=== PATIENT | female | born 1980 | race Hispanic/Latino ===

== ENCOUNTER 2017-12-16 09:29 | Emergency (ER) | payer SELFPAY ==
[2017-12-16] MEDS ORDERED: NA CHLORIDE 0.9% 1,000 ML ONE (10:38)
[2017-12-16 12:18] LABS: Absolute Lymphocytes (CBC) 2.2 K/uL (0.7-4.9); Absolute Monocytes 0.5 K/uL (0.1-1.3); Absolute Neutrophil 5.3 K/uL (1.8-8.0); Basophils % 0.7 % (0-1.3); Hematocrit 39.8 % (36.0-45.0); Lymphocytes % 27.1 % (15.3-44.8); MCV 88.9 fL (80-100); MPV 8.6 fL (7.6-11.3); Monocytes % 6.3 % (3.3-12.3); RBC Red Blood Cell Count 4.47 M/uL (3.86-4.86)
[2017-12-16 12:30] LABS: Protime INR 0.9
[2017-12-16 12:33] LABS: BUN Blood Urea Nitrogen 8 mg/dL (7-18); Bicarbonate 27 mmol/L (21-32); CKMB Creatine Kinase MB 2.6 ng/mL (0.3-3.6); Creatine Phosphokinase 310 U/L (26-192); Glucose Level 111 mg/dL (74-106); Magnesium 2.3 mg/dL (1.8-2.4); NT PRO-BNP 68 pg/mL (<125); Potassium 3.7 mmol/L (3.5-5.1); Sodium Level 140 mmol/L (136-145); Troponin I < 0.02 ng/mL (0.0-0.045)
[2017-12-16 13:58] LABS: Urine Blood TRACE (NEG); Urine Glucose NEGATIVE (NEG); Urine Protein NEGATIVE (NEG)
[2017-12-16 14:07] LABS: CKMB Creatine Kinase MB 2.4 ng/mL (0.3-3.6); Creatine Phosphokinase 284 U/L (26-192); Troponin (Emerg Dept Use Only) < 0.02 ng/mL (0.0-0.045)
--- NOTE | 2017-12-16 14:18 | ER ---
Nurse's Notes [facility] Name: Manisha Lee Age: 37 yrs Sex: Female : 1980 Arrival Date: 12/16/2017 Time: :31 Bed 20 Private MD: Diagnosis: Other chest pain;Syncope and collapse Presentation: 12/16 09:30 Acuity: MONA 3 dm5 Screenin:03 Abuse screen: Denies threats or abuse. Nutritional screening: No deficits noted. em Tuberculosis screening: No symptoms or risk factors identified. Fall Risk None identified. Assessment: 12:00 Reassessment: Patient appears in no apparent distress at this time. Patient and/or em family updated on plan of care and expected duration. Pain level reassessed. Patient is alert, oriented x 3, equal unlabored respirations, skin warm/dry/pink. Patient denies pain at this time. Patient states symptoms have improved. 12:00 Reassessment: see paper chart prior to 1200. em 13:04 Reassessment: Patient appears in no apparent distress at this time. Patient and/or em family updated on plan of care and expected duration. Pain level reassessed. Patient is alert, oriented x 3, equal unlabored respirations, skin warm/dry/pink. repeat EKG and cardiac labs Patient denies pain at this time. Patient states feeling better. Patient states symptoms have improved. 14:27 Reassessment: Patient appears in no apparent distress at this time. Patient and/or em family updated on plan of care and expected duration. Pain level reassessed. Patient is alert, oriented x 3, equal unlabored respirations, skin warm/dry/pink. Patient denies pain at this time. Patient states feeling better. Patient states symptoms have improved. Vital Signs: 12:00 BP 106 / 66; Pulse 70; Resp 18; Pulse Ox 99% on R/A; Pain 0/10; em 13:00 BP 116 / 67; Pulse 79; Resp 18; Pulse Ox 99% on R/A; em 13:57 BP 115 / 72; Pulse 82; Resp 16; Pulse Ox 100% on R/A; mh5 14:40 BP 110 / 65; Pulse 64; Resp 16; Pulse Ox 99% on R/A; Pain 0/10; em ED Course: :31 Patient arrived in ED. mr 11:35 Kwabena Wood, HALINA is Primary Nurse. em 11:36 Urine collected: clean catch specimen, clear, EKG done, by ED staff. [facility] 11:40 Arias Topete PA is PHCP. kdr 11:44 Dustin Garcia MD is Attending Physician. [facility] 12:00 Patient has correct armband on for positive identification. Placed in gown. Bed in low em position. Call light in reach. Adult w/ patient. 12:00 Arm band placed on. em 12:52 Chest Single View In Process Unspecified. EDMS 13:16 Repeat lab(s) drawn. by me, sent to lab. EKG done, by ED staff, reviewed by Arias 5 Yoselyn NIETO. 13:48 Triage completed. dm5 Administered Medications: No medications were administered Outcome: 14:17 Discharge ordered by . jmm 14:24 Discharge ordered by MD. m 14:42 Patient left the ED. em Signatures: Dispatcher [employer] EDMS Tisha Grace, RN RN dm5 Dustin Garcia MD MD [facility] Arias Topete PA PA [facility] Manisha Arcos mr Israel, Kwabena, MARINE PLUMBER MARINE PLUMBER [facility] Corrections: (The following items were deleted from the chart) 13:03 12:00 BP 106 / 66; Pulse 70bpm; Resp 18bpm; Pulse Ox 99% RA; em em
--- NOTE | 2017-12-16 14:19 | EDPHYS ---
Physician Documentation [facility] Name: Manisha Lee Age: 37 yrs Sex: Female : 1980 Arrival Date: 12/16/2017 Time: 09:31 Bed 20 Private MD: ED Physician Dustin Garcia HPI: 12/16 11:45 This 37 yrs old Female presents to ER via Unassigned with complaints of jmm Syncope. 11:45 The patient has experienced syncope, collapsed. Onset: The symptoms/episode jmm began/occurred acutely, yesterday. Duration: This was a single episode, that lasted 3 minute(s). Associated injury: The patient did not suffer any apparent associated injury. Associated signs and symptoms: Pertinent positives: chest pain. This is a 37 year old female with no chronic medical conditions that presents to the ED with weakness for approx 6 days. Patient states she had a syncopal episode yesterday while standing. Family states she collapsed and was unconscious for approx 3 minutes. Patient states that she awoke to substernal chest pain this morning at approx 0430, described as pressure and has been constant. Patient denies unilateral weakness. . ROS: 11:45 Constitutional: Negative for fever, chills, and weight loss. jmm 11:45 Abdomen/GI: Negative for abdominal pain, nausea, vomiting, diarrhea, and constipation, Back: Negative for injury and pain. 11:45 Skin: Negative for injury, rash, and discoloration. 11:45 Cardiovascular: Positive for chest pain. 11:45 Respiratory: Positive for shortness of breath. 11:45 MS/extremity: Positive for tingling. 11:45 Neuro: Positive for weakness. 11:45 All other systems are negative. Exam: 10:39 ECG was reviewed by the Attending Physician. jmm 11:45 Constitutional: This is a well developed, well nourished patient who is awake, alert, jmm and in no acute distress. Head/Face: atraumatic. 11:45 ENT: Moist Mucus Membranes Neck: Trachea midline, Supple Chest/axilla: Normal chest wall appearance and motion. 11:45 Cardiovascular: Rate: normal, Rhythm: regular, Pulses: no pulse deficits are appreciated. 11:45 Respiratory: the patient does not display signs of respiratory distress, Respirations: normal, Breath sounds: are clear throughout. 11:45 Abdomen/GI: Inspection: abdomen appears normal, Bowel sounds: normal, Palpation: abdomen is soft and non-tender, in all quadrants. 11:45 Skin: Appearance: Color: normal in color. 11:45 Neuro: Orientation: is normal, Mentation: is normal, Memory: is normal, Cerebellar function: normal finger to nose testing, Motor: is normal, Gait: is steady. 11:45 Psych: Behavior/mood is pleasant, cooperative. Vital Signs: 12:00 BP 106 / 66; Pulse 70; Resp 18; Pulse Ox 99% on R/A; Pain 0/10; em 13:00 BP 116 / 67; Pulse 79; Resp 18; Pulse Ox 99% on R/A; em 13:57 BP 115 / 72; Pulse 82; Resp 16; Pulse Ox 100% on R/A; mh5 14:40 BP 110 / 65; Pulse 64; Resp 16; Pulse Ox 99% on R/A; Pain 0/10; em MDM: 11:44 Patient medically screened. [facility] 14:16 Differential Diagnosis: vasovagal episode, syncope, acute MT. Data reviewed: vital [facility] signs, nurses notes. Counseling: I had a detailed discussion with the patient and/or guardian regarding: the historical points, exam findings, and any diagnostic results supporting the discharge/admit diagnosis, lab results, radiology results, the need for outpatient follow up, to return to the emergency department if symptoms worsen or persist or if there are any questions or concerns that arise at home. 14:18 ED course: Patient is alert and no ntoxic in appearance in the ED. Patient states her [facility] symptoms are relieved in the ED. Heart score = 0. I do not currently suspect ACS. Patient given strict return precautions and otherwise advised to follow up with PCP. Patient and family understood and agree with the plan of care. . 14:18 Data reviewed: lab test result(s), EKG, radiologic studies, plain films. [facility] 12/16 12:31 Order name: CBC with Automated Diff; Complete Time: 12:33 [facility] 12/16 12:32 Order name: Protime (+INR); Complete Time: 12:33 [facility] 12/16 12:32 Order name: PTT, Activated Partial Thromb; Complete Time: 12:33 [facility] 12/16 11:53 Order name: Urine Test (obtain specimen); Complete Time: 12:41 [facility] 12/16 11:53 Order name: XRAY Chest (1 view) [facility] 12/16 12:32 Order name: D-Dimer; Complete Time: 12:33 [facility] 12/16 12:34 Order name: Basic Metabolic Panel; Complete Time: 12:35 [facility] 12/16 12:34 Order name: Creatine Phosphokinase; Complete Time: 12:35 [facility] 12/16 12:34 Order name: CKMB Creatine Kinase MB; Complete Time: 12:35 [facility] 12/16 12:34 Order name: Troponin I; Complete Time: 12:35 [facility] 12/16 12:34 Order name: NT PRO-BNP; Complete Time: 12:35 [facility] 12/16 12:34 Order name: Magnesium; Complete Time: 12:35 [facility] 12/16 12:47 Order name: Ckmb; Complete Time: 14:15 12/16 12:47 Order name: Creatine Phosphokinase; Complete Time: 14:15 12/16 12:47 Order name: Troponin (emerg Dept Use Only); Complete Time: 14:15 12/16 12:51 Order name: Chest Single View [facility] 12/16 13:32 Order name: Urine Dipstick-Ancillary; Complete Time: 14:03 [facility] 12/16 13:32 Order name: Urine --Ancillary; Complete Time: 14:03 [facility] 12/16 11:53 Order name: Cardiac monitoring; Complete Time: 12:41 [facility] 12/16 11:53 Order name: EKG - Nurse/Tech; Complete Time: 12:41 [facility] 12/16 11:53 Order name: IV Saline Lock; Complete Time: 12:41 [facility] 12/16 11:53 Order name: Labs collected and sent; Complete Time: 12:41 [facility] 12/16 11:53 Order name: O2 Per Protocol; Complete Time: 12:41 [facility] 12/16 11:53 Order name: O2 Sat Monitoring; Complete Time: 12:41 [facility] 12/16 11:53 Order name: Urine Dipstick-Ancillary (obtain specimen); Complete Time: 12:40 jmm EC:39 Rate is 80 beats/min. Rhythm is regular. QRS [place] is Normal. IN interval is normal. QRS jmm interval is normal. QT interval is normal. No Q waves. T waves are Normal. No ST changes noted. Reviewed by me. Administered Medications: No medications were administered Disposition: 15:36 Co-signature as Attending Physician, Dustin Garcia MD I agree with the assessment and kdr plan of care. Disposition: 12/16/17 14:24 Discharged to Home. Impression: Other chest pain, Syncope and collapse. - Condition is Stable. - Discharge Instructions: Nonspecific Chest Pain, Syncope. - Medication Reconciliation Form, Thank You Letter, Antibiotic Education, Prescription Opioid Use form. - Follow up: Private Physician; When: 2 - 3 days; Reason: Recheck today's complaints, Continuance of care, Re-evaluation by your physician. - Notes: Please follow up with your primary care provder in 1 to 2 days for reevaluation. Please return to the ED if you develop increased pain or any other concerning symptoms. Signatures: Dispatcher [employer] Dustin Padilla MD MD kdr Mickail, Joel, PA PA jose eduardom Kwabena Wood, GOPHERMAN GOPHERMAN em Corrections: (The following items were deleted from the chart) 14:14 12:46 BASIC METABOLIC PANEL+C.LAB.BRZ ordered. EDND EDND 14:14 12:46 CBC+H.LAB.BRZ ordered. EDND EDMS 14:14 12:46 CKMB+C.LAB.BRZ ordered. EDND EDMS 14:14 12:46 CREATINE PHOSPHOKINASE+C.LAB.BRZ ordered. EDND EDMS 14:14 12:46 HEPATIC FUNCTION+C.LAB.BRZ ordered. EDND EDMS 14:14 12:46 MAGNESIUM+C.LAB.BRZ ordered. EDND EDND 14:14 12:46 PROBNP+C.LAB.BRZ ordered. EDND EDMS 14:14 12:46 PROTIME (+INR)+COAG.LAB.BRZ ordered. EDND EDMS 14:14 12:46 PTT, ACTIVATED+COAG.LAB.BRZ ordered. [facility] EDMS 14:14 12:46 TROPONIN (EMERG DEPT USE ONLY)+C.LAB.BRZ ordered. EDND EDMS 14:14 12:46 D-DIMER+COAG.LAB.BRZ ordered. [facility] EDND 14:21 14:17 12/16/2017 14:17 Discharged to Home. Impression: Syncope and collapse; Other jmm chest pain. Condition is Stable. Forms are Medication Reconciliation Form, Thank You Letter, Antibiotic Education, Prescription Opioid Use. Follow up: Private Physician; When: 2 - 3 days; Reason: Recheck today's complaints, Continuance of care, Re-evaluation by your physician. [facility] 14:42 14:24 12/16/2017 14:24 Discharged to Home. Impression: Other chest pain; Syncope and em collapse. Condition is Stable. Forms are Medication Reconciliation Form, Thank You Letter, Antibiotic Education, Prescription Opioid Use. Follow up: Private Physician; When: 2 - 3 days; Reason: Recheck today's complaints, Continuance of care, Re-evaluation by your physician. [facility]
--- NOTE | 2017-12-16 14:41 | RAD REPORT ---
EXAM DESCRIPTION: RAD - Chest Single View - 12/16/2017 11:08 am CLINICAL HISTORY: SYNCOPE<Reason For Exam>SYNCOPE Shortness of breath COMPARISON: No comparisons<Comparisons> TECHNIQUE: AP portable chest image was obtained 1105 hours . FINDINGS: Lungs are clear. Heart and vasculature are normal. No measurable pleural effusion and no p neumothorax. No gross bony abnormality seen. No acute aortic findings suspected. IMPRESSION: No acute cardiopulmonary process.
--- NOTE | 2017-12-18 07:58 | EKG ---
Test Date: 2017-12-16 Test Time: 13:06:03 Hydro Excavation Operator: BERNARD MEASUREMENT RESULTS: Intervals: Rate: 73 AK: 132 QRSD: 78 QT: 404 QTc: 445 [place]: P: 50 AK: 132 QRS: 83 T: 44 INTERPRETIVE STATEMENTS: Normal sinus rhythm Normal ECG Compared to ECG 12/16/2017 10:39:57 No significant changes Electronically Signed On 12-18-17 07:55:16 CDT by Anthony Mcmillan
--- NOTE | 2017-12-18 07:58 | EKG ---
Test Date: 2017-12-16 Test Time: 10:39:57 Ramp Manager: BERNARD MEASUREMENT RESULTS: Intervals: Rate: 80 MO: 130 QRSD: 78 QT: 374 QTc: 431 [place]: P: 50 MO: 130 QRS: 82 T: 49 INTERPRETIVE STATEMENTS: Normal sinus rhythm Normal ECG No previous ECG available for comparison Electronically Signed On 12-18-17 07:55:19 CDT by Anthony Mcmillan
== END 2017-12-16 14:42 | disposition home or self-care (01) ==
LOC: ER 09:29
DX: R55 Syncope and collapse (principal); R07.89 Other chest pain
CPT/HCPCS: 36415; 71045; 80048; 81003; 81025; 82550; 82553; 83735; 83880; 84484; 85025; 85379; 85610; 85730; 93005; 99284; J7030

== ENCOUNTER 2019-06-22 22:30 | Emergency (ER) | payer SELFPAY ==
[2019-06-22] MEDS ORDERED: NA CHLORIDE 0.9% 1,000 ML ONE (23:06)
[2019-06-22 23:25] LABS: Absolute Lymphocytes (CBC) 2.8 K/uL (0.7-4.9); Basophils % 0.5 % (0-1.3); Hematocrit 37.6 % (36.0-45.0); Lymphocytes % 19.5 % (15.3-44.8); MPV 8.5 fL (7.6-11.3); RBC Red Blood Cell Count 4.42 M/uL (3.86-4.86)
[2019-06-22 23:33] LABS: Protime INR 1.02
[2019-06-22 23:39] LABS: Potassium 3.5 mmol/L (3.5-5.1)
[2019-06-23] MEDS ORDERED: KETOROLAC 30 MG/ML INJ ONE (00:46)
--- NOTE | 2019-06-23 01:51 | ER ---
Nurse's Notes [facility] Name: Manisha Watkins Age: 38 yrs Sex: Female : 1980 Arrival Date: 06/22/2019 Time: 22:34 Bed 23 Private MD: Diagnosis: Abnormal uterine and vaginal bleeding, unspecified Presentation: 06/21 22:36 Chief complaint: Patient states: Vaginal bleeding heavy with clots for 2 days. Feels ll1 weak, dizzy. Denies . 1 pad about every 2 hours. Coronavirus screen: The patient has NOT traveled to a country currently being monitored by the [facility] within the last 14 days. Proceed with normal triage procedures. Ebola Screen: Patient denies travel to an Ebola-affected area in the 21 days before illness onset. Initial Sepsis Screen: Does the patient meet any 2 criteria? No. Patient's initial sepsis screen is negative. Does the patient have a suspected source of infection? No. Patient's initial sepsis screen is negative. Risk Assessment: Do you want to hurt yourself or someone else? Patient reports no desire to harm self or others. 22:36 Method Of Arrival: Ambulatory ll1 22:36 Acuity: MONA 3 ll1 Triage Assessment: 22:35 General: Appears in no apparent distress. Behavior is calm, cooperative. ls4 22:35 Neuro: No deficits noted. Cardiovascular: Denies chest pain. Respiratory: No deficits ls4 noted. GI: No deficits noted. : Reports vaginal bleeding that is. Derm: No deficits noted. Musculoskeletal: No deficits noted. 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 - Social history:: Patient/guardian denies using alcohol, street drugs, tobacco products. Screenin:42 Abuse screen: Denies threats or abuse. Denies injuries from another. Nutritional ls4 screening: No deficits noted. Tuberculosis screening: No symptoms or risk factors identified. Fall Risk None identified. Assessment: 23:20 Pain: Complains of pain in suprapubic area Pain currently is 6 out of 10 on a pain ls4 scale. Neuro: No deficits noted. Cardiovascular: Rhythm is regular. Respiratory: Breath sounds are clear bilaterally. GI: Abdomen is round non-distended, Bowel sounds present X 4 quads. : Urine is blood tinged, gillian blood, Reports vaginal bleeding that is bright red, with clots, heavy flow since YESTERDAY. Derm: No deficits noted. Musculoskeletal: No deficits noted. 06/22 00:22 Reassessment: Patient appears in no apparent distress at this time. Patient and/or ls4 family updated on plan of care and expected duration. Pain level reassessed. Patient is alert, oriented x 3, equal unlabored respirations, skin warm/dry/pink. 01:47 Reassessment: Patient and/or family updated on plan of care and expected duration. Pain fu level reassessed. Patient is alert, oriented x 3, equal unlabored respirations, skin warm/dry/pink. Vital Signs: 06/21 22:36 BP 144 / 81; Pulse 116; Resp 17; Temp 98.0; Pulse Ox 99% ; Weight 67.13 kg; Pain 5/10; ll1 08 00:20 BP 119 / 65; Pulse 89; Resp 18; Pulse Ox 99% on R/A; lp1 01:11 BP 112 / 71 Supine; Pulse 91 RA; fu 01:11 BP 114 / 73 Sitting; Pulse 92; fu 01:11 BP 118 / 71 Standing; Pulse 91; fu 01:45 BP 104 / 83; Pulse 75; Resp 20; Pulse Ox 99% ; fu 03:00 BP 109 / 70; Pulse 75; Resp 18; Pulse Ox 100% on R/A; Pain 0/10; fu ED Course: 06/21 22:30 Arm band placed on. ls4 22:34 Patient arrived in ED. es 22:38 Triage completed. ll1 22:42 Patient has correct armband on for positive identification. Bed in low position. Call ls4 light in reach. Side rails up X 1. Pulse ox on. NIBP on. 22:42 No provider procedures requiring assistance completed. ls4 22:46 Estefania Mclain FNP-C is [facility]. snw 22:46 Maureen Deluca MD is Attending Physician. snw 22:57 Assist provider with pelvic exam: Set up pelvic tray. Performed by Estefania RODRIGUEZ Patient tolerated well. 23:19 Initial lab(s) drawn, by me, sent to lab. T\T\S collected, blood band applied to patient. ls4 Inserted saline lock: 18 gauge in right antecubital area, using aseptic technique. Blood collected. Patient maintains SpO2 saturation greater than 95% on room air. 06/22 00:20 Katarzyna Borja, RN is Primary Nurse. ls4 01:31 Primary Nurse role handed off by Katarzyna Borja, RN fu 01:31 Byron Burgess, RN is Primary Nurse. fu 03:20 IV discontinued, bleeding controlled, Pressure dressing applied. fu Administered Medications: 06/21 22:55 Drug: NS 0.9% 1000 ml Route: IV; Rate: 1 bolus; Site: right antecubital; ls4 06/22 01:07 Follow up: IV Status: Completed infusion; IV Intake: 1000ml lp1 00:43 Drug: TORadol 30 mg Route: IVP; Site: right antecubital; ls4 01:39 Follow up: Response: Pain is decreased fu Intake: 01:07 IV: 1000ml; Total: 1000ml. lp1 Outcome: 01:51 Discharge ordered by MD. snw 03:24 Discharged to home ambulatory, with family. fu 03:24 Condition: stable 03:24 Discharge instructions given to patient, family, Instructed on discharge instructions, Demonstrated understanding of instructions, follow-up care, Prescriptions given X 1. 03:25 Patient left the ED. fu Signatures: Estefania Mclain FNP-C [employer] MAINTENANCE WORKER-[employer] Jo Ann Escamilla Laura, RN RN lp1 Byron Burgess, MARISSA RN Katarzyna Borja, RN RN ls4 Johanna Garvin RN RN ll1
--- NOTE | 2019-06-23 01:51 | EDPHYS ---
Physician Documentation [facility] Name: Manisha Watkins Age: 38 yrs Sex: Female : 1980 Arrival Date: 06/22/2019 Time: 22:34 Bed 23 Private MD: ED Physician Maureen Deluca HPI: 06/21 22:59 This 38 yrs old Female presents to ER via Ambulatory with complaints of snw Vaginal Bleeding. 22:59 The patient presents with vaginal bleeding that is moderate, with clots, reports using snw 2 pads or tampons per day, q 2hours. Onset: The symptoms/episode began/occurred suddenly, yesterday, and became persistent. Associated signs and symptoms: The patient has no apparent associated signs or symptoms. Severity of symptoms: At their worst the symptoms were moderate, in the emergency department the symptoms are unchanged. The patient's method of control includes nothing. The patient has not experienced similar symptoms in the past. [facility]. 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 - Social history:: Patient/guardian denies using alcohol, street drugs, tobacco products. ROS: 22:59 Constitutional: Negative for fever, chills, and weight loss, Eyes: Negative for injury, snw pain, redness, and discharge, ENT: Negative for injury, pain, and discharge, Neck: Negative for injury, pain, and swelling, Cardiovascular: Negative for chest pain, palpitations, and edema, Respiratory: Negative for shortness of breath, cough, wheezing, and pleuritic chest pain, Abdomen/GI: Negative for abdominal pain, nausea, vomiting, diarrhea, and constipation, Back: Negative for injury and pain, : Negative for injury, discharge, and swelling, + vaginal bleeding with clots. MS/Extremity: Negative for injury and deformity, Skin: Negative for injury, rash, and discoloration, Neuro: Negative for headache, weakness, numbness, tingling, and seizure. Exam: 22:57 Constitutional: This is a well developed, well nourished patient who is awake, alert, snw and in no acute distress. Head/Face: Normocephalic, atraumatic. Eyes: Pupils equal round and reactive to light, extra-ocular motions intact. Lids and lashes normal. Conjunctiva and sclera are non-icteric and not injected. Cornea within normal limits. Periorbital areas with no swelling, redness, or edema. ENT: Nares patent. No nasal discharge, no septal abnormalities noted. Tympanic membranes are normal and external auditory canals are clear. Oropharynx with no redness, swelling, or masses, exudates, or evidence of obstruction, uvula midline. Mucous membranes moist. Neck: Trachea midline, no thyromegaly or masses palpated, and no cervical lymphadenopathy. Supple, full range of motion without nuchal rigidity, or vertebral point tenderness. No Meningismus. Chest/axilla: Normal chest wall appearance and motion. Nontender with no deformity. No lesions are appreciated. 22:57 Respiratory: Lungs have equal breath sounds bilaterally, clear to auscultation and percussion. No rales, rhonchi or wheezes noted. No increased work of breathing, no retractions or nasal flaring. Back: No spinal tenderness. No costovertebral tenderness. Full range of motion. Skin: Warm, dry with normal turgor. Normal color with no rashes, no lesions, and no evidence of cellulitis. MS/ Extremity: Pulses equal, no cyanosis. Neurovascular intact. Full, normal range of motion. Neuro: Awake and alert, GCS 15, oriented to person, place, time, and situation. Cranial nerves II-XII grossly intact. Motor strength 5/5 in all extremities. Sensory grossly intact. Cerebellar exam normal. Normal gait. Psych: Awake, alert, with orientation to person, place and time. Behavior, mood, and affect are within normal limits. 22:57 Abdomen/GI: Soft, non-tender, with normal bowel sounds. No distension or tympany. No guarding or rebound. No evidence of tenderness throughout. Pelvic Exam: Normal external genitalia. Speculum exam with closed cervical os, no discharge, moderate bleeding noted, clots expressed. Bimanual exam with normal adnexa, no adnexal or cervical motion tenderness. Normal uterus. 22:57 Cardiovascular: Rate: tachycardic, Rhythm: regular, Pulses: no pulse deficits are appreciated. Vital Signs: 22:36 BP 144 / 81; Pulse 116; Resp 17; Temp 98.0; Pulse Ox 99% ; Weight 67.13 kg; Pain 5/10; ll1 06/22 00:20 BP 119 / 65; Pulse 89; Resp 18; Pulse Ox 99% on R/A; lp1 01:11 BP 112 / 71 Supine; Pulse 91 RA; fu 01:11 BP 114 / 73 Sitting; Pulse 92; fu 01:11 BP 118 / 71 Standing; Pulse 91; fu 01:45 BP 104 / 83; Pulse 75; Resp 20; Pulse Ox 99% ; fu 03:00 BP 109 / 70; Pulse 75; Resp 18; Pulse Ox 100% on R/A; Pain 0/10; fu MDM: 06/21 23:04 Patient medically screened. snw 06/22 01:52 Data reviewed: vital signs, nurses notes. Data interpreted: Pulse oximetry: on room air snw is 99 %. Interpretation: normal. Counseling: I had a detailed discussion with the patient and/or guardian regarding: the historical points, exam findings, and any diagnostic results supporting the discharge/admit diagnosis, lab results, the need for outpatient follow up, for definitive care. Response to treatment: the patient's symptoms have mildly improved after treatment, the patient's symptoms have markedly improved after treatment. Special discussion: Based on the history and exam findings, there is no indication for further emergent testing or inpatient evaluation. I discussed with the patient/guardian the need to see the OB Gyne specialist for further evaluation of the symptoms. I discussed with the patient/guardian the need to see the primary care provider for further evaluation of the symptoms. 06/21 22:48 Order name: Abo/rh Typing; Complete Time: 23:36 snw 06/21 22:48 Order name: Basic Metabolic Panel; Complete Time: 23:36 snw 06/21 22:48 Order name: CBC with Diff; Complete Time: 23:36 snw 06/21 22:57 Order name: Test, Serum; Complete Time: 23:36 snw 06/21 22:58 Order name: PT-INR; Complete Time: 23:36 snw 06/21 22:48 Order name: IV Saline Lock; Complete Time: 00:16 snw 06/21 22:48 Order name: Labs collected and sent; Complete Time: 00:16 snw 06/21 22:48 Order name: NPO; Complete Time: 00:16 snw 06/21 23:04 Order name: Pelvic Exam Setup; Complete Time: 23:04 lp1 06/21 23:59 Order name: VS Recheck; Complete Time: 00:16 snw 06/22 00:51 Order name: Orthostatics; Complete Time: 01:10 snw Administered Medications: 06/21 22:55 Drug: NS 0.9% 1000 ml Route: IV; Rate: 1 bolus; Site: right antecubital; ls4 06/22 01:07 Follow up: IV Status: Completed infusion; IV Intake: 1000ml lp1 00:43 Drug: TORadol 30 mg Route: IVP; Site: right antecubital; ls4 01:39 Follow up: Response: Pain is decreased fu Disposition: 06/23 01:32 Co-signature as Attending Physician, Maureen Deluca MD. pr2 Disposition: 06/23/19 01:51 Discharged to Home. Impression: Abnormal uterine and vaginal bleeding, unspecified. - Condition is Stable. - Discharge Instructions: Abnormal Uterine Bleeding, Hysteroscopy. - Prescriptions for Diclofenac Sodium 75 mg Oral Tablet Sustained Release - take 1 tablet by ORAL route 2 times per day; 30 tablet. - Medication Reconciliation Form, Thank You Letter, Antibiotic Education, Prescription Opioid Use form. - Follow up: Emergency Department; When: As needed; Reason: Worsening of condition. Follow up: Private Physician; When: 2 - 3 days; Reason: Recheck today's complaints, Continuance of care, Re-evaluation by your physician. Signatures: Dispatcher [employer] EDMS Estefania Mclain, SENIOR ACCOUNTS PAYABLE CLERK-C SENIOR ACCOUNTS PAYABLE CLERK-Csnw Kristin Swenson RN RN lp1 Byron Burgess RN RN fu Alzahri, Mohammad, MD MD ma2 Katarzyna Borja RN RN ls4 Johanna Garvin RN RN ll1 Corrections: (The following items were deleted from the chart) 06/21 22:57 22:41 Urine Test ordered. ls4 snw 06/22 03:25 01:51 06/23/2019 01:51 Discharged to Home. Impression: Abnormal uterine and vaginal fu bleeding, unspecified. Condition is Stable. Forms are Medication Reconciliation Form, Thank You Letter, Antibiotic Education, Prescription Opioid Use. Follow up: Emergency Department; When: As needed; Reason: Worsening of condition. Follow up: Private Physician; When: 2 - 3 days; Reason: Recheck today's complaints, Continuance of care, Re-evaluation by your physician. snw
[2019-06-23 03:45] VITALS: TEMP 98
[2019-06-23 03:51] VITALS: BP 109/70; O2SAT 100
== END 2019-06-23 03:25 | disposition home or self-care (01) ==
LOC: ER 22:30
DX: N93.9 Abnormal uterine and vaginal bleeding, unspecified (principal)
CPT/HCPCS: 36415; 80048; 84703; 85025; 85610; 86900; 86901; 96361; 96374; 99284; J7030